=== PATIENT | male | born 1970 | race Asian ===

== ENCOUNTER 2020-07-23 15:50 | Emergency (ER) | payer OTHER ==
[~2020-07-23] VITALS: Ht 185.4 cm; Wt 113.4 kg
[2020-07-23 17:15] LABS: PLATELET COUNT 196 K/uL (142-355)
[2020-07-23 17:28] LABS: POTASSIUM 3.3 mmol/L (3.6-5.2)
[2020-07-23 19:19] VITALS: BP 136/59; TEMP 98.9
== END 2020-07-23 19:19 | disposition home or self-care (01) ==
LOC: ED 15:50
PROVIDERS: Emergency Medicine Emergency Medical Services
DX: L02.211 Cutaneous abscess of abdominal wall (principal); Z03.818 Encounter for observation for suspected exposure to other biological agents ruled out
CPT/HCPCS: 80053; 83605; 85027; 87040; 87635; 96360; 96361; 96365; 99284; U0003

== ENCOUNTER 2020-10-22 11:25 | Emergency (ER) | payer OTHER ==
[~2020-10-22] VITALS: Ht 185.4 cm; Wt 113.4 kg
[2020-10-22 11:31] VITALS: TEMP 96.9
[2020-10-22 12:05] LABS: PLATELET COUNT 245 K/uL (142-355)
[2020-10-22 12:12] LABS: POTASSIUM 4.1 mmol/L (3.6-5.2)
[2020-10-22 13:00] VITALS: BP 175/60
== END 2020-10-22 13:00 | disposition home or self-care (01) ==
LOC: ED 11:25
PROVIDERS: Hospitalist
DX: I50.9 Heart failure, unspecified (principal); K21.9 Gastro-esophageal reflux disease without esophagitis
CPT/HCPCS: 36415; 80053; 82550; 83880; 84484; 85027; 85610; 85730; 93005; 96374; 99284; J1940

== ENCOUNTER 2021-02-01 06:29 | Outpatient (CLI) | payer OTHER ==
[2021-02-01 06:59] LABS: PLATELET COUNT 211 K/uL (142-355)
== END 2021-02-01 22:48 | disposition home or self-care (01) ==
LOC: ED 06:29
PROVIDERS: ATTEND Internal Medicine Cardiovascular Disease
DX: Z79.899 Other long term (current) drug therapy (principal)
CPT/HCPCS: 36415; 80053; 80061; 85027

== ENCOUNTER 2021-05-08 07:25 | Outpatient (CLI) | payer OTHER | END 2021-05-08 21:49 | disposition home or self-care (01) | LOC: US 07:25 | PROVIDERS: ATTEND Internal Medicine Cardiovascular Disease | DX: R09.89 Other specified symptoms and signs involving the circulatory and respiratory systems (principal); I10 Essential (primary) hypertension; I35.1 Nonrheumatic aortic (valve) insufficiency ==

== ENCOUNTER 2021-08-29 07:02 | Outpatient (CLI) | payer OTHER | END 2021-08-29 19:01 | disposition home or self-care (01) | LOC: LABW 07:02 | PROVIDERS: ATTEND Internal Medicine Cardiovascular Disease | DX: I35.1 Nonrheumatic aortic (valve) insufficiency (principal) | CPT/HCPCS: 36415; 85610 ==

== ENCOUNTER 2021-09-19 07:26 | Outpatient (CLI) | payer BC | END 2021-09-19 19:05 | disposition home or self-care (01) | LOC: LABW 07:26 | PROVIDERS: ATTEND Surgery | DX: I35.1 Nonrheumatic aortic (valve) insufficiency (principal); Z95.2 Presence of prosthetic heart valve | CPT/HCPCS: 36415; 85610 ==

== ENCOUNTER 2021-09-23 08:12 | Outpatient (CLI) | payer BC | END 2021-09-23 19:07 | disposition home or self-care (01) | LOC: LABW 08:12 | PROVIDERS: ATTEND Surgery | DX: I35.1 Nonrheumatic aortic (valve) insufficiency (principal); Z95.2 Presence of prosthetic heart valve | CPT/HCPCS: 36415; 85610 ==

== ENCOUNTER 2021-09-26 10:34 | Outpatient (CLI) | payer BC | END 2021-09-26 21:05 | disposition home or self-care (01) | LOC: LABW 10:34 | PROVIDERS: ATTEND Surgery | DX: I35.1 Nonrheumatic aortic (valve) insufficiency (principal); Z95.2 Presence of prosthetic heart valve | CPT/HCPCS: 36415; 85610 ==

== ENCOUNTER 2021-09-30 08:11 | Outpatient (CLI) | payer BC | END 2021-09-30 18:57 | disposition home or self-care (01) | LOC: LABW 08:11 | PROVIDERS: ATTEND Surgery | DX: I35.1 Nonrheumatic aortic (valve) insufficiency (principal); Z95.2 Presence of prosthetic heart valve | CPT/HCPCS: 36415; 85610 ==

== ENCOUNTER 2021-10-07 07:51 | Outpatient (CLI) | payer BC | END 2021-10-07 19:03 | disposition home or self-care (01) | LOC: LABW 07:51 | PROVIDERS: ATTEND Surgery | DX: I35.1 Nonrheumatic aortic (valve) insufficiency (principal); Z95.2 Presence of prosthetic heart valve | CPT/HCPCS: 36415; 85610 ==

== ENCOUNTER 2021-10-11 09:01 | Outpatient (CLI) | payer BC | END 2021-10-11 19:51 | disposition home or self-care (01) | LOC: RAD 09:01 | PROVIDERS: ATTEND Surgery | DX: Z95.2 Presence of prosthetic heart valve (principal); R06.2 Wheezing ==

== ENCOUNTER 2021-11-13 11:22 | Outpatient (CLI) | payer BC | END 2021-11-13 19:19 | disposition home or self-care (01) | LOC: LABW 11:22 | PROVIDERS: ATTEND Internal Medicine Cardiovascular Disease | DX: Z79.01 Long term (current) use of anticoagulants (principal); Z95.2 Presence of prosthetic heart valve; I50.9 Heart failure, unspecified | CPT/HCPCS: 36415; 83880; 85610 ==

== ENCOUNTER 2021-11-25 11:20 | Outpatient (CLI) | payer OTHER | END 2021-11-25 19:02 | disposition home or self-care (01) | LOC: LABW 11:20 | PROVIDERS: ATTEND Internal Medicine Endocrinology, Diabetes & Metabolism | DX: Z95.2 Presence of prosthetic heart valve (principal); Z79.01 Long term (current) use of anticoagulants | CPT/HCPCS: 36415; 85610 ==

== ENCOUNTER 2021-12-02 10:23 | Outpatient (CLI) | payer OTHER | END 2021-12-02 18:52 | disposition home or self-care (01) | LOC: LABW 10:23 | PROVIDERS: ATTEND Internal Medicine Endocrinology, Diabetes & Metabolism | DX: Z95.2 Presence of prosthetic heart valve (principal) | CPT/HCPCS: 36415; 85610 ==

== ENCOUNTER 2022-01-29 17:07 | Emergency (ER) | payer OTHER ==
[~2022-01-29] VITALS: Ht 185.4 cm; Wt 137.9 kg
[2022-01-29 17:12] VITALS: TEMP 98.9
[2022-01-29 18:55] LABS: PLATELET COUNT 148 K/uL (142-355)
[2022-01-29 18:59] LABS: POTASSIUM 3.7 mmol/L (3.6-5.2)
[2022-01-29] MEDS ORDERED: CARV12.5 PO (19:33)
[2022-01-29] MEDS ORDERED: CARV25TA PO (19:34)
[2022-01-29] MEDS ORDERED: ZESTRIL40 MG PO (19:35)
[2022-01-29] MEDS ORDERED: VAZALORE81 MG PO (19:36)
[2022-01-29] MEDS ORDERED: COZAAR100 MG PO (19:37)
[2022-01-29] MEDS ORDERED: JANTOVEN10 MG (19:45)
[2022-01-29] MEDS ORDERED: JANTOVEN7.5 MG PO (19:48)
[2022-01-29] MEDS ORDERED: LIPITOR40 MG PO (19:49)
[2022-01-29] MEDS ORDERED: ACET-655 PO (19:51)
[2022-01-29] MEDS ORDERED: CHLORTHALID25 MG PO (19:56)
[2022-01-29] MEDS ORDERED: SPIRONOLACT25 MG PO (19:57)
[2022-01-29 20:03] VITALS: BP 136/89
== END 2022-01-29 20:00 | disposition home or self-care (01) ==
LOC: ED 17:07
PROVIDERS: Emergency Medicine Emergency Medical Services
DX: U07.1 COVID-19 (principal); J40 Bronchitis, not specified as acute or chronic
CPT/HCPCS: 36415; 80048; 84484; 85008; 85027; 85610; 87040; 87502; 87635; 93005; 96365; 99284; J0696; J1100; U0003

== ENCOUNTER 2022-04-26 19:35 | Emergency (ER) | payer OTHER ==
[~2022-04-26] VITALS: Ht 185.4 cm; Wt 140.2 kg
[~2022-04-26 19:35] MED LIST: ACET-655 PO; CARV12.5 PO; CARV25TA PO; CHLORTHALID25 MG PO; COZAAR100 MG PO; JANTOVEN10 MG; JANTOVEN7.5 MG PO; LIPITOR40 MG PO; SPIRONOLACT25 MG PO; VAZALORE81 MG PO; ZESTRIL40 MG PO
[2022-04-26 19:45] VITALS: TEMP 98.8
[2022-04-26 20:48] LABS: PARTIAL THROMBOPLASTIN TIME 26.9 SECONDS (24.5-33.6)
[2022-04-26 21:46] VITALS: BP 165/75
== END 2022-04-26 21:46 | disposition home or self-care (01) ==
LOC: ED 19:35
PROVIDERS: Emergency Medicine
DX: R51.9 Headache, unspecified (principal); M54.2 Cervicalgia; R79.1 Abnormal coagulation profile
CPT/HCPCS: 80307; 85610; 85730; 99283; J2360

== ENCOUNTER 2022-05-23 09:11 | Outpatient (CLI) | payer OTHER ==
[2022-05-23 10:10] LABS: POTASSIUM 3.3 mmol/L (3.6-5.2)
== END 2022-05-23 19:03 | disposition home or self-care (01) ==
LOC: LABW 09:11
PROVIDERS: ATTEND Internal Medicine Cardiovascular Disease
DX: Z95.2 Presence of prosthetic heart valve (principal); Z79.01 Long term (current) use of anticoagulants; I10 Essential (primary) hypertension; E78.49 Other hyperlipidemia; I48.91 Unspecified atrial fibrillation; D64.89 Other specified anemias
CPT/HCPCS: 36415; 80048; 80061; 85610

== ENCOUNTER 2022-10-06 14:44 | Outpatient (CLI) | payer OTHER | END 2022-10-06 21:43 | disposition home or self-care (01) | LOC: US 14:44 | PROVIDERS: ATTEND Internal Medicine Endocrinology, Diabetes & Metabolism | DX: I82.401 Acute embolism and thrombosis of unspecified deep veins of right lower extremity (principal) ==

== ENCOUNTER 2023-01-30 22:14 | Emergency (ER) | payer OTHER ==
[~2023-01-30] VITALS: Ht 185.4 cm; Wt 127.9 kg
[2023-01-30 22:45] LABS: PLATELET COUNT 290 K/uL (142-355)
[2023-01-30 22:51] LABS: POTASSIUM 3.6 mmol/L (3.6-5.2)
[2023-01-30 23:01] LABS: PARTIAL THROMBOPLASTIN TIME 22.8 SECONDS (23.9-36.7)
[2023-01-30 23:20] VITALS: BP 161/86
== END 2023-01-30 23:30 | disposition short-term general hospital (02) ==
LOC: ED 22:14
PROVIDERS: Family Medicine
DX: S81.032A Puncture wound without foreign body, left knee, initial encounter (principal); S81.031A Puncture wound without foreign body, right knee, initial encounter; F17.210 Nicotine dependence, cigarettes, uncomplicated; I99.8 Other disorder of circulatory system; W34.00XA Accidental discharge from unspecified firearms or gun, initial encounter
CPT/HCPCS: 36415; 36430; 80053; 80307; 81002; 85027; 85610; 85730; 86850; 86900; 86901; 86922; 90472; 96361; 96365; 96366; 96375; 99285; J1170; J2405; J2543; J3490; P9016

== ENCOUNTER 2023-03-19 09:46 | Outpatient (CLI) | payer OTHER | END 2023-03-19 20:53 | disposition home or self-care (01) | LOC: US 09:46 | PROVIDERS: ATTEND Internal Medicine | DX: N28.1 Cyst of kidney, acquired (principal) ==